=== PATIENT | female | born 1970 | race Caucasian/White ===

== ENCOUNTER 2021-07-09 17:41 | Emergency (ER) | payer OTHER ==
[2021-07-09] MEDS ORDERED: Lidocaine 1% with EPINEPHrine 1:100,000 10 ML MDV INJECT ONE (19:39)
[2021-07-09] MEDS ORDERED: Diphtheria,Pertussis(Acell),Tetanus Vaccine 0.5 ML Syringe IM ONE (20:09)
== END 2021-07-09 20:21 | disposition home or self-care (01) ==
LOC: MW.ED 17:41
DX: S01.81XA Laceration without foreign body of other part of head, initial encounter (principal); Z23 Encounter for immunization; W10.9XXA Fall (on) (from) unspecified stairs and steps, initial encounter
CPT/HCPCS: 12013; 90471; 90715; 99282-25